=== PATIENT | male | born 1965 | race Caucasian/White ===

== ENCOUNTER 2017-04-15 01:52 | Emergency (ER) | payer OTHER ==
[~2017-04-15] VITALS: Ht 188 cm; Wt 91.6 kg
--- OUTSIDE RECORDS SUMMARY | 2017-04-15 01:57 | XMS REPORT ---
Author Author ROSA RYAN Organization [employer] Address Unknown Phone Unavailable Care Team Providers Care Driller Hand Name Role Phone ROSA RYAN CP Unavailable Allergies No Known Allergies Problems No Known Problems Medications No Known Medications Results No Known Results Summary Purpose [employer] Submission
--- OUTSIDE RECORDS SUMMARY | 2017-04-15 01:57 | XMS REPORT | Continuity of Care Document ---
Author Author [facility] Organization [facility] Address Unknown Phone Unavailable Allergies Active Description Code Type Severity Reaction Onset Reported/Identified Relationship to Patient Clinical Status Yes No Known Drug Allergies [id number] Drug Allergy Unknown N/ A 12/26/2014 Medications Problems Date Dx Coded Attending Type Code Diagnosis Diagnosed By 12/26/2014 ERIN PONCE, LAMBERT Carey Ot 535.00 12/26/2014 ERIN PONCE, LAMBERT Carey Ot 560.9 12/26/2014 LAMBERT KHAN MD Ot V15.82 Procedures Results Encounters ACCT No. Visit Date/Time Discharge Status Pt. Type Provider Facility Loc./Unit Complaint [id number] 12/26/2014 05:31:00 2014 20:15:00 DIS Inpatient LAMBERT KHAN MD [facility] SURGICAL
--- OUTSIDE RECORDS SUMMARY | 2017-04-15 01:57 | XMS REPORT ---
Author Author ROSA RYAN [facility] [employer] Address Unknown Phone Unavailable Care Team Providers Care Inspector Health Care Facilities Name Role Phone ROSA RYAN CP Unavailable Allergies, Adverse Reactions, Alerts Substance Reaction Event Type N.K.D.A. Info Not Available Non Drug Allergy Problems Problem Type Condition Code Onset Dates Condition Status Assessment Meniere disease H81.09 Active Assessment Bronchitis J40 Active Medications Medication Code System Code Instructions Start Date End Date Status Dosage Meclizine HCl [facility] [address]-31 25 MG Orally 4 times a day May 08, 2015 1 Keflex [facility] [address]-25 500 MG Orally 4 times a day May 08, 2015 May 15, 2015 1 capsule Meclizine HCl [facility] [address]-04 25 MG Orally 4 times a day May 08, 2015 1 tablet as needed Procedures Procedure Coding System Code Date Office Visit, New Pt., Level 3 CPT-4 14929 May 08, 2015 MEASURE BLOOD OXYGEN LEVEL CPT-4 83126 May 08, 2015 Vital Signs Date/Time: May 08, 2015 Temperature 98.5 F Weight 200 lbs Height 71 in Oximetry 96 % Blood Pressure Diastolic 70 mmHg Blood Pressure Systolic 108 mmHg Cardiac Monitoring Heart Rate 70 bpm BMI 27.89 Index Results No Known Results Summary Purpose [employer] Submission
[2017-04-15 02:11] LABS: BASOPHILS % (AUTO) 0 % (0-10); EOSINOPHILS # (AUTO) 0.3 10^3/uL (0.0-0.3); EOSINOPHILS % (AUTO) 4 % (0-10); LYMPHOCYTES % (AUTO) 29 % (12-44); MEAN CORPUSCULAR HEMOGLOBIN 31 PG (25-34); MEAN CORPUSCULAR HGB CONC 35 G/DL (32-36); MEAN CORPUSCULAR VOLUME 89 FL (80-99); MEAN PLATELET VOLUME 9.2 FL (7.4-10.4); MONOCYTES # (AUTO) 0.4 X 10^3 (0.0-1.0); MONOCYTES % (AUTO) 6 % (0-12); NEUTROPHILS # (AUTO) 4.3 X 10^3 (1.8-7.8); NEUTROPHILS % (AUTO) 61 % (42-75); PLATELET COUNT 244 10^3/uL (130-400); RED CELL DISTRIBUTION WIDTH 12.8 % (10.0-14.5)
[2017-04-15 02:14] LABS: INR 0.9 (0.8-1.4); PROTHROMBIN TIME PATIENT 12.2 SEC (12.2-14.7)
--- NOTE | 2017-04-15 02:14 | ED Chest Pain ---
General Chief Complaint: Chest Pain Stated Complaint: CP Source: patient, spouse Exam Limitations: no limitations History of Present Illness Time seen by provider: 01:59 Initial Comments Patient presents to ER by private conveyance with chief complaint of for approximately 2 hours now he's been experiencing some intermittent chest pains across both sides of his chest that feel like a butterfly with a hacksaw. He says he feels palpitations as well but no nausea, tingling or pain in his jaw hands or arms. He has had to have several bowel movements every 15 minutes for the past couple hours. He denies shortness of breath or cough. He denies diabetes, hypertension, hypothyroidism, previous coronary artery disease. He says he is a 30 year smoker who quit 2 weeks ago. He denies any recent alcohol use and does not use drugs. He has no family history of early cardiac disease. Prior to coming to the ER the patient states he chewed up at 325 mg tablet of aspirin. Otherwise he does not routinely take any medications. Allergies and Home Medications Allergies Coded Allergies: No Known Drug Allergies (Unverified , 12/26/14) Home Medications No Active Prescriptions or Reported Meds Review of Systems Constitutional: No chills, No diaphoresis EENTM: No Blurred Vision, No Eye Pain Respiratory: Denies Cough, Denies Shortness of Air Cardiovascular: See HPI, Chest Pain, Denies Irregular Heart Rate, Denies Lightheadedness, Palpitations, Denies Syncope Gastrointestinal: Denies Abdominal Pain, Denies Constipated, Denies Diarrhea, Denies Vomiting Genitourinary: Denies Burning, Denies Discharge Musculoskeletal: No back pain, No joint swelling Skin: No pruritus, No rash Psychiatric/Neurological: Denies Anxiety, Denies Depressed, Denies Headache, Denies Numbness, Denies Paresthesia Hematologic/Lymphatic: Denies Blood Clots, Denies Swollen Glands Past Suojbwz-Kburmk-Szomns Hx Patient Social History Alcohol Use: Denies Use Recreational Drug Use: No Smoking Status: Former Smoker Type Used: Cigarettes 2nd Hand Smoke Exposure: Yes Recent Foreign Travel: No Contact w/Someone Who Travel: No Recent Hopitalizations: No Immunizations Up To Date Tetanus Booster (TDap): Unknown Seasonal Allergies Seasonal Allergies: No Surgeries History of Surgeries: No Respiratory History of Respiratory Disorde: No Cardiovascular History of Cardiac Disorders: No Neurological History of Neurological Disord: No Reproductive System Hx Reproductive Disorders: No Genitourinary History of Genitourinary Disor: No Gastrointestinal History of Gastrointestinal Di: Yes (SBO- 12/26/14) Musculoskeletal History of Musculoskeletal Dis: No Endocrine History of Endocrine Disorders: No HEENT History of HEENT Disorders: No Cancer History of Cancer: No Psychosocial History of Psychiatric Problem: Yes Behavioral Health Disorders: Anxiety Integumentary History of Skin or Integumenta: No Blood Transfusions History of Blood Disorders: No Family Medical History Significant Family History: No Pertinent Family Hx Family Medial History: Patient reports no known family medical history. Physical Exam Vital Signs Vital Sign - Last 12Hours 04/15/17 04/15/17 01:52 02:00 Temp 97.7 Pulse 63 Resp 16 B/P (MAP) 116/64 Pulse Ox 98 O2 Delivery Nasal Cannula O2 Flow Rate 2.00 Capillary Refill : Less Than 3 Seconds General Appearance: No Apparent Distress, WD/WN HEENT: PERRL/EOMI, Pharynx Normal Neck: Full Range of Motion, Normal Inspection Respiratory: Chest Non Tender, Lungs Clear, Normal Breath Sounds, No Accessory Muscle Use, No Respiratory Distress Cardiovascular: Regular Rate, Rhythm, No Edema, No Gallop, No JVD, No Murmur, Normal Peripheral Pulses Gastrointestinal: Normal Bowel Sounds, No Organomegaly, Non Tender, Soft Extremity: Normal Capillary Refill, Normal Inspection Neurologic/Psychiatric: Alert, Oriented x3, Normal Mood/Affect Skin: Normal Color, Warm/Dry Progress/Results/Core Measures Results/Orders Lab Results Laboratory Tests Test 04/15/17 01:53 04/15/17 03:30 Range/Units White Blood Count 7.0 4.3-11.0 10^3/uL Red Blood Count 4.70 4.35-5.85 10^6/uL Hemoglobin 14.6 13.3-17.7 G/DL Hematocrit 42 40-54 % Mean Corpuscular Volume 89 80-99 FL Mean Corpuscular Hemoglobin 31 25-34 PG Mean Corpuscular Hemoglobin Concent 35 32-36 G/DL Red Cell Distribution Width 12.8 10.0-14.5 % Platelet Count 244 130-400 10^3/uL Mean Platelet Volume 9.2 7.4-10.4 FL Neutrophils (%) (Auto) 61 42-75 % Lymphocytes (%) (Auto) 29 12-44 % Monocytes (%) (Auto) 6 0-12 % Eosinophils (%) (Auto) 4 0-10 % Basophils (%) (Auto) 0 0-10 % Neutrophils # (Auto) 4.3 1.8-7.8 X 10^3 Lymphocytes # (Auto) 2.0 1.0-4.0 X 10^3 Monocytes # (Auto) 0.4 0.0-1.0 X 10^3 Eosinophils # (Auto) 0.3 0.0-0.3 10^3/uL Basophils # (Auto) 0.0 0.0-0.1 10^3/uL Prothrombin Time 12.2 12.2-14.7 SEC INR Comment 0.9 0.8-1.4 Activated Partial Thromboplast Time 26 24-35 SEC Sodium Level 139 135-145 MMOL/L Potassium Level 3.7 3.6-5.0 MMOL/L Chloride Level 104 98-107 MMOL/L Carbon Dioxide Level 24 21-32 MMOL/L Anion Gap 11 5-14 MMOL/L Blood Urea Nitrogen 11 7-18 MG/DL Creatinine 1.14 0.60-1.30 MG/DL Estimat Glomerular Filtration Rate > 60 BUN/Creatinine Ratio 10 Glucose Level 128 H 70-105 MG/DL Calcium Level 9.1 8.5-10.1 MG/DL Magnesium Level 2.2 1.8-2.4 MG/DL Total Bilirubin 0.4 0.1-1.0 MG/DL Aspartate Amino Transf (AST/SGOT) 21 5-34 U/L Alanine Aminotransferase (ALT/SGPT) 47 0-55 U/L Alkaline Phosphatase 68 40-136 U/L Myoglobin 53.4 10.0-92.0 NG/ML Troponin I < 0.30 < 0.30 <0.30 NG/ML Total Protein 6.8 6.4-8.2 GM/DL Albumin 4.2 3.2-4.5 GM/DL My Orders Orders - ANDRZEJ HERRERA Cbc With Automated Diff (04/15/17 02:04) Magnesium (04/15/17 02:04) Chest 1 View, Ap/Pa Only (04/15/17 02:04) Ekg Tracing (04/15/17 02:04) Cardiac Profile 1 (04/15/17 02:04) Comprehensive Metabolic Panel (04/15/17 02:04) Myoglobin Serum (04/15/17 02:04) Protime With Inr (04/15/17 02:04) Partial Thromboplastin Time (04/15/17 02:04) O2 (04/15/17 02:04) Monitor-Rhythm Ecg Trace Only (04/15/17 02:04) Lipid Panel (04/16/17 06:00) Saline Lock/Iv-Start (04/15/17 02:04) Troponin I (04/15/17 03:53) Vital Signs/I&O Vital Sign - Last 12Hours 04/15/17 04/15/17 04/15/17 01:52 02:00 02:00 Temp 97.7 Pulse 63 Resp 16 B/P (MAP) 116/64 Pulse Ox 98 99 O2 Delivery Nasal Cannula Nasal Cannula Nasal Cannula O2 Flow Rate 2.00 2.00 Progress Note : Time: 03:18 Progress Note ED ACS scores of 12 which is low risk and they recommend two-hour troponin rule out. His second troponin will be just before 4:00. ECG Initial ECG Impression Date: Apr 15, 2017 Initial ECG Impression Time: 01:52 Initial ECG Rate: 63 Initial ECG Rhythm: Normal Sinus Initial ECG Intervals: Normal Initial ECG Impression: Normal Initial ECG Comparisson: No Previous ECG Available Comment No T-wave elevation or depression Diagnostic Imaging Diagonstic Imaging: Xray Plain Films/CT/US/NM/MRI: chest Comments No acute cardiopulmonary process noted. Reviewed: Reviewed by Me Departure Impression Impression: Primary Impression: Chest pain Qualified Codes: R07.9 - Chest pain, unspecified Disposition: 01 HOME, SELF-CARE Condition: Stable Departure-Patient Inst. Decision time for Depature: 04:14 Referrals: NO,LOCAL PHYSICIAN (PCP/Family) Primary Care Physician Patient Instructions: Chest Pain (DC) Add. Discharge Instructions: Tomorrow morning after 8:30 please plan on calling Dr. Parker, cardiology at his office at [phone] to be seen this week. You'll need further workup outpatient to help figure out why you're having these chest pains and if they' re related to your heart. If you have severe chest pain accompanied with nausea vomiting shortness of breath cough you should return to the ER otherwise plan on following up with the software implementation specialist. All discharge instructions reviewed with patient and/or family. Voiced understanding. Scripts No Active Prescriptions or Reported Meds Work/School Note: Work Release Form Date Seen in the Emergency Department: Apr 15, 2017 Return to Work: Apr 15, 2017 Restrictions: No Restrictions Copy Copies To 1: Marzena PARKER MD, TITUS J Apr 15, 2017 02:14
[2017-04-15 02:25] LABS: ALANINE AMINOTRANSFERASE 47 U/L (0-55); ALBUMIN 4.2 GM/DL (3.2-4.5); ANION GAP 11 MMOL/L (5-14); ASPARTATE AMINO TRANSFERASE 21 U/L (5-34); BILIRUBIN,TOTAL 0.4 MG/DL (0.1-1.0); BLOOD UREA NITROGEN 11 MG/DL (7-18); BUN/CREATININE RATIO 10; CALCIUM 9.1 MG/DL (8.5-10.1); CARBON DIOXIDE 24 MMOL/L (21-32); CHLORIDE 104 MMOL/L (98-107); CREATININE SERUM 1.14 MG/DL (0.60-1.30); GFR ESTIMATED > 60; GLUCOSE 128 MG/DL (70-105); MAGNESIUM 2.2 MG/DL (1.8-2.4); POTASSIUM 3.7 MMOL/L (3.6-5.0); SODIUM 139 MMOL/L (135-145); TOTAL PROTEIN 6.8 GM/DL (6.4-8.2)
[2017-04-15 02:32] LABS: MYOGLOBIN SERUM 53.4 NG/ML (10.0-92.0)
[2017-04-15 04:22] VITALS: BP 107/73
--- NOTE | 2017-04-15 06:19 | Diagnostic Imaging Report ---
EXAM: CHEST 1 VIEW, AP/PA ONLY INDICATION: Chest pain. COMPARISON: None. FINDINGS: Normal heart size and pulmonary vascularity. No focal pulmonary opacity, pleural effusion or pneumothorax. No acute osseous findings. Calcified aorta. IMPRESSION: No acute cardiopulmonary findings. Dictated by: Dictated on workstation # [id number]
== END 2017-04-15 04:18 | disposition home or self-care (01) ==
LOC: EDUNIT# 01:52 → ER 01:53
DX: R07.9 Chest pain, unspecified (principal); F41.9 Anxiety disorder, unspecified; Z87.891 Personal history of nicotine dependence
CPT/HCPCS: 36415; 71010; 80053; 83735; 83874; 84484; 85025; 85610; 85730; 93005; 93041

== ENCOUNTER 2017-06-02 08:15 | Outpatient (RCR) | payer OTHER | END 2017-08-31 | disposition home or self-care (01) | LOC: CARD 08:15 | PROVIDERS: ATTEND Internal Medicine Interventional Cardiology | DX: R07.9 Chest pain, unspecified (principal); R42 Dizziness and giddiness; F17.200 Nicotine dependence, unspecified, uncomplicated | CPT/HCPCS: 93225; 93226 ==

== ENCOUNTER → 2017-06-05 | Outpatient (CLI) | payer OTHER ==
[~2017-06-05] VITALS: Ht 188 cm; Wt 89.8 kg
[~2017-06-05] MED LIST: CATHETER FLUSH 10 ML SYR IV PRN
== END ==
LOC: CARD 07:21
PROVIDERS: ATTEND Internal Medicine Interventional Cardiology
DX: R07.9 Chest pain, unspecified (principal); R42 Dizziness and giddiness; F17.200 Nicotine dependence, unspecified, uncomplicated

== ENCOUNTER → 2017-06-09 | Outpatient (CLI) | payer OTHER ==
[~2017-06-09] MED LIST changes: +REGADENOSON 0.4 MG/5 ML SYR (LEXISCAN) IV ONE
[2017-06-09 09:20] VITALS: BP 119/80
--- NOTE | 2017-06-09 21:19 | STRESS TEST ---
DATE OF SERVICE: 06/09/2017 PHARMACOLOGICAL NUCLEAR STRESS TEST REPORT PRIMARY PHYSICIAN: Dr. Jose Gallegos. ATTENDING PHYSICIAN: Dr. Paul Dia. DIAGNOSIS: Chest pain. PROCEDURE DETAILS: The patient was brought to the stress lab after informed consent was taken. All the risks and complications were explained. Lexiscan stress test was performed according to the protocol. A 0.4 mg of Lexiscan was given IV. Low-grade exercise was performed. Baseline EKG showed sinus rhythm at 55 BPM and blood pressure 119/80 mmHg. Maximum heart rate was 100 BPM and blood pressure was 119/80 mmHg. The patient did not have any chest pain, EKG changes or arrhythmias during Lexiscan infusion. A 10.10 mCi of Myoview were given for rest imaging and 28.4 mCi of Myoview were given for stress imaging. TID was 0.96, EF 61%. There is a small-sized severe intensity apical fixed defect. Normal wall motion. SSS 1, SRS 0, SDS 1. IMPRESSION/CONCLUSION: 1. Pharmacological stress test negative for ischemia. 2. There is a small apical fixed defect noted. Clinical correlation is recommended. 3. Normal left ventricular function with no wall motion abnormalities. Job ID: [id number] DocumentID: [id number] Dictated Date: 06/09/2017 15:06:20 Wedger Machine Date: 06/09/2017 19:15:30 Dictated By: JANIS DIA MD
== END ==
LOC: CARD 07:20
PROVIDERS: ATTEND Internal Medicine Interventional Cardiology
DX: R07.9 Chest pain, unspecified (principal); R42 Dizziness and giddiness; F17.210 Nicotine dependence, cigarettes, uncomplicated
CPT/HCPCS: 78452; 93017

== ENCOUNTER → 2017-07-04 | Outpatient (CLI) | payer OTHER | LOC: CARD 08:28 | PROVIDERS: ATTEND Internal Medicine Interventional Cardiology | DX: R07.9 Chest pain, unspecified (principal); R42 Dizziness and giddiness; F17.200 Nicotine dependence, unspecified, uncomplicated | CPT/HCPCS: 93306 ==

== ENCOUNTER 2017-07-09 07:16 | Day surgery (SDC) | payer OTHER ==
[~2017-07-09] VITALS: Ht 188 cm; Wt 89.8 kg
[2017-07-09] VITALS (9 sets, daily range): BP systolic 100–152; BP diastolic 68–96
--- OUTSIDE RECORDS SUMMARY | 2017-07-09 07:21 | XMS REPORT | Continuity of Care Document ---
Author Author [facility] Organization [facility] Address Unknown Phone Unavailable Allergies Active Description Code Type Severity Reaction Onset Reported/Identified Relationship to Patient Clinical Status Yes No Known Drug Allergies [id number] Drug Allergy Unknown N/A 12/26/2014 Medications There is no data. Problems Date Dx Coded Attending Type Code Diagnosis Diagnosed By 12/26/2014 LAMBERT KHAN MD Ot 535.00 12/26/2014 LAMBERT KHAN MD Ot 560.9 12/26/2014 LAMBERT KHAN MD Ot V15.82 04/15/2017 ANDRZEJ HERRERA MD Ot F41.9 ANXIETY DISORDER, UNSPECIFIED 04/15/2017 ANDRZEJ HERRERA MD Ot R07.9 CHEST PAIN, UNSPECIFIED 04/15/2017 ANDRZEJ HERRERA MD Ot Z87.891 PERSONAL HISTORY OF NICOTINE DEPENDENCE 05/26/2017 RICHARD HAMEED MD Ot F41.9 ANXIETY DISORDER, UNSPECIFIED 05/26/2017 RICHARD HAMEED MD Ot R07.2 PRECORDIAL PAIN 05/26/2017 RICHARD HAMEED MD Ot R07.89 OTHER CHEST PAIN 05/26/2017 RICHARD HAMEED MD Ot R10.31 RIGHT LOWER QUADRANT PAIN 05/26/2017 RICHARD HAMEED MD Ot R55 SYNCOPE AND COLLAPSE 05/26/2017 RICHARD HAMEED MD Ot R68.83 CHILLS (WITHOUT FEVER) 05/26/2017 RICHARD HAMEED MD, Ot Z77.22 CNTCT W AND EXPSR TO ENVIRON TOBACCO SMO 05/26/2017 RICHARD HAMEED MD, Ot Z80.1 FAMILY HISTORY OF MALIG NEOPLASM OF TRAC 05/26/2017 RICHARD HAMEED MD Ot Z87.19 PERSONAL HISTORY OF OTHER DISEASES OF TH 05/26/2017 RICHARD HAMEED MD Erwin Ot Z90.89 ACQUIRED ABSENCE OF OTHER ORGANS 06/03/2017 IFEOMA PONCE, Marzena WAN Ot F17.200 NICOTINE DEPENDENCE, UNSPECIFIED, UNCOMP 06/03/2017 IFEOMA PONCE, Marzena WAN Ot R07.9 CHEST PAIN, UNSPECIFIED 06/03/2017 IFEOMA PONCE, Marzena WAN Ot R42 DIZZINESS AND GIDDINESS 06/06/2017 IFEOMA PONCE, Marzena WAN Ot F17.200 NICOTINE DEPENDENCE, UNSPECIFIED, UNCOMP 06/06/2017 IFEOMA PONCE, Marzena WAN Ot R07.9 CHEST PAIN, UNSPECIFIED 06/06/2017 Marzena DIA MD, Ot R42 DIZZINESS AND GIDDINESS 06/10/2017 IFEOMA PONCE, Marzena WAN Ot F17.210 NICOTINE DEPENDENCE, CIGARETTES, UNCOMPL 06/10/2017 Marzena DIA MD, Ot R07.9 CHEST PAIN, UNSPECIFIED 06/10/2017 Marzena DIA MD, Ot R42 DIZZINESS AND GIDDINESS Procedures There is no data. Results Test Result Range Complete blood count (CBC) with automated white blood cell (WBC) differential - 04/15/17 01:53 Blood leukocytes automated count (number/volume) 7.0 10*3/uL 4.3-11.0 Blood erythrocytes automated count (number/volume) 4.70 10*6/uL 4.35-5.85 Venous blood hemoglobin measurement (mass/volume) 14.6 g/dL 13.3-17.7 Blood hematocrit (volume fraction) 42 % 40-54 Automated erythrocyte mean corpuscular volume 89 [foz_us] 80-99 Automated erythrocyte mean corpuscular hemoglobin (mass per erythrocyte) 31 pg 25-34 Automated erythrocyte mean corpuscular hemoglobin concentration measurement ( mass/volume) 35 g/dL 32-36 Automated erythrocyte distribution width ratio 12.8 % 10.0-14.5 Automated blood platelet count (count/volume) 244 10*3/uL 130-400 Automated blood platelet mean volume measurement 9.2 [foz_us] 7.4-10.4 Automated blood neutrophils/100 leukocytes 61 % 42-75 Automated blood lymphocytes/100 leukocytes 29 % 12-44 Blood monocytes/100 leukocytes 6 % 0-12 Automated blood eosinophils/100 leukocytes 4 % 0-10 Automated blood basophils/100 leukocytes 0 % 0-10 Blood neutrophils automated count (number/volume) 4.3 10*3 1.8-7.8 Blood lymphocytes automated count (number/volume) 2.0 10*3 1.0-4.0 Blood monocytes automated count (number/volume) 0.4 10*3 0.0-1.0 Automated eosinophil count 0.3 10*3/uL 0.0-0.3 Automated blood basophil count (count/volume) 0.0 10*3/uL 0.0-0.1 PT panel in platelet poor plasma by coagulation assay - 04/15/17 01:53 Prothrombin time (PT) in platelet poor plasma by coagulation assay 12.2 s 12.2-14.7 INR in platelet poor plasma or blood by coagulation assay 0.9 0.8-1.4 Activated partial thromboplastin time (aPTT) in platelet poor plasma bycoagulation assay - 04/15/17 01:53 Activated partial thromboplastin time (aPTT) in platelet poor plasma bycoagulation assay 26 s 24-35 Comprehensive metabolic panel - 04/15/17 01:53 Serum or plasma sodium measurement (moles/volume) 139 mmol/L 135-145 Serum or plasma potassium measurement (moles/volume) 3.7 mmol/L 3.6-5.0 Serum or plasma chloride measurement (moles/volume) 104 mmol/L 98-107 Carbon dioxide 24 mmol/L 21-32 Serum or plasma anion gap determination (moles/volume) 11 mmol/L 5-14 Serum or plasma urea nitrogen measurement (mass/volume) 11 mg/dL 7-18 Serum or plasma creatinine measurement (mass/volume) 1.14 mg/dL 0.60-1.30 Serum or plasma urea nitrogen/creatinine mass ratio 10 NRG Serum or plasma creatinine measurement with calculation of estimated glomerular filtration rate > NRG Serum or plasma glucose measurement (mass/volume) 128 mg/dL 70-105 Serum or plasma calcium measurement (mass/volume) 9.1 mg/dL 8.5-10.1 Serum or plasma total bilirubin measurement (mass/volume) 0.4 mg/dL 0.1-1.0 Serum or plasma alkaline phosphatase measurement (enzymatic activity/volume) 68 U/L 40-136 Serum or plasma aspartate aminotransferase measurement (enzymatic activity/ volume) 21 U/L 5-34 Serum or plasma alanine aminotransferase measurement (enzymatic activity/volume ) 47 U/L 0-55 Serum or plasma protein measurement (mass/volume) 6.8 g/dL 6.4-8.2 Serum or plasma albumin measurement (mass/volume) 4.2 g/dL 3.2-4.5 Magnesium - 04/15/17 01:53 Magnesium 2.2 mg/dL 1.8-2.4 Serum or plasma troponin i.cardiac measurement (mass/volume) - 04/15/17 01:53 Serum or plasma troponin i.cardiac measurement (mass/volume) < ng/ mL <0.30 Myoglobin, serum - 04/15/17 01:53 Myoglobin, serum 53.4 ng/mL 10.0-92.0 Serum or plasma troponin i.cardiac measurement (mass/volume) - 04/15/17 03:30 Serum or plasma troponin i.cardiac measurement (mass/volume) < ng/ mL <0.30 Complete blood count (CBC) with automated white blood cell (WBC) differential - 05/26/17 08:40 Blood leukocytes automated count (number/volume) 6.8 10*3/uL 4.3-11.0 Blood erythrocytes automated count (number/volume) 4.62 10*6/uL 4.35-5.85 Venous blood hemoglobin measurement (mass/volume) 14.3 g/dL 13.3-17.7 Blood hematocrit (volume fraction) 41 % 40-54 Automated erythrocyte mean corpuscular volume 89 [foz_us] 80-99 Automated erythrocyte mean corpuscular hemoglobin (mass per erythrocyte) 31 pg 25-34 Automated erythrocyte mean corpuscular hemoglobin concentration measurement ( mass/volume) 35 g/dL 32-36 Automated erythrocyte distribution width ratio 13.1 % 10.0-14.5 Automated blood platelet count (count/volume) 289 10*3/uL 130-400 Automated blood platelet mean volume measurement 9.0 [foz_us] 7.4-10.4 Automated blood neutrophils/100 leukocytes 49 % 42-75 Automated blood lymphocytes/100 leukocytes 38 % 12-44 Blood monocytes/100 leukocytes 10 % 0-12 Automated blood eosinophils/100 leukocytes 2 % 0-10 Automated blood basophils/100 leukocytes 0 % 0-10 Blood neutrophils automated count (number/volume) 3.3 10*3 1.8-7.8 Blood lymphocytes automated count (number/volume) 2.6 10*3 1.0-4.0 Blood monocytes automated count (number/volume) 0.7 10*3 0.0-1.0 Automated eosinophil count 0.2 10*3/uL 0.0-0.3 Automated blood basophil count (count/volume) 0.0 10*3/uL 0.0-0.1 PT panel in platelet poor plasma by coagulation assay - 05/26/17 08:40 Prothrombin time (PT) in platelet poor plasma by coagulation assay 13.7 s 12.2-14.7 INR in platelet poor plasma or blood by coagulation assay 1.0 0.8-1.4 Activated partial thromboplastin time (aPTT) in platelet poor plasma bycoagulation assay - 05/26/17 08:40 Activated partial thromboplastin time (aPTT) in platelet poor plasma bycoagulation assay 26 s 24-35 Comprehensive metabolic panel - 05/26/17 08:40 Serum or plasma sodium measurement (moles/volume) 141 mmol/L 135-145 Serum or plasma potassium measurement (moles/volume) 3.8 mmol/L 3.6-5.0 Serum or plasma chloride measurement (moles/volume) 107 mmol/L 98-107 Carbon dioxide 23 mmol/L 21-32 Serum or plasma anion gap determination (moles/volume) 11 mmol/L 5-14 Serum or plasma urea nitrogen measurement (mass/volume) 13 mg/dL 7-18 Serum or plasma creatinine measurement (mass/volume) 0.86 mg/dL 0.60-1.30 Serum or plasma urea nitrogen/creatinine mass ratio 15 NRG Serum or plasma creatinine measurement with calculation of estimated glomerular filtration rate > NRG Serum or plasma glucose measurement (mass/volume) 85 mg/dL 70-105 Serum or plasma calcium measurement (mass/volume) 9.5 mg/dL 8.5-10.1 Serum or plasma total bilirubin measurement (mass/volume) 0.6 mg/dL 0.1-1.0 Serum or plasma alkaline phosphatase measurement (enzymatic activity/volume) 61 U/L 40-136 Serum or plasma aspartate aminotransferase measurement (enzymatic activity/ volume) 14 U/L 5-34 Serum or plasma alanine aminotransferase measurement (enzymatic activity/volume ) 13 U/L 0-55 Serum or plasma protein measurement (mass/volume) 6.9 g/dL 6.4-8.2 Serum or plasma albumin measurement (mass/volume) 4.4 g/dL 3.2-4.5 Magnesium - 05/26/17 08:40 Magnesium 2.3 mg/dL 1.8-2.4 Serum or plasma troponin i.cardiac measurement (mass/volume) - 05/26/17 08:40 Serum or plasma troponin i.cardiac measurement (mass/volume) < ng/ mL <0.30 Myoglobin, serum - 05/26/17 08:40 Myoglobin, serum 36.2 ng/mL 10.0-92.0 Serum or plasma thyrotropin measurement by detection limit <=0.05 miu/l (units/ volume) - 05/26/17 08:40 Serum or plasma thyrotropin measurement by detection limit <=0.05 miu/l (units/ volume) 1.61 u[iU]/mL 0.35-4.94 Complete urinalysis with reflex to culture - 05/26/17 08:55 Urine color determination YELLOW NRG Urine clarity determination CLEAR NRG Urine pH measurement by test strip 6 5-9 Specific gravity of urine by test strip 1.020 1.016- 1.022 Urine protein assay by test strip, semi-quantitative NEGATIVE NEGATIVE Urine glucose detection by automated test strip NEGATIVE NEGATIVE Erythrocytes detection in urine sediment by light microscopy 1+ NEGATIVE Urine ketones detection by automated test strip NEGATIVE NEGATIVE Urine nitrite detection by test strip NEGATIVE NEGATIVE Urine total bilirubin detection by test strip NEGATIVE NEGATIVE Urine urobilinogen measurement by automated test strip (mass/volume) 1 mg/dL NORMAL Urine leukocyte esterase detection by dipstick NEGATIVE NEGATIVE Automated urine sediment erythrocyte count by microscopy (number/high power field) NONE NRG Automated urine sediment leukocyte count by microscopy (number/high power field ) NONE NRG Bacteria detection in urine sediment by light microscopy NEGATIVE NRG Squamous epithelial cells detection in urine sediment by light microscopy RARE NRG Crystals detection in urine sediment by light microscopy NONE NRG Casts detection in urine sediment by light microscopy NONE NRG Mucus detection in urine sediment by light microscopy NEGATIVE NRG Complete urinalysis with reflex to culture NO NRG Influenza virus A and B antigen detection - 05/26/17 09:00 FLU RESULT NEGATIVE FOR INFLUENZA A AND B ANTIGENS BY IA NRG Encounters ACCT No. Visit Date/Time Discharge Status Pt. Type Provider Facility Loc./Unit Complaint [id number] 07/04/2017 08:28:00 07/04/2017 23:59:59 CLS Outpatient Marzena DIA MD [facility] CARD CHEST PAIN [id number] 06/09/2017 07:20:00 06/09/2017 23:59:59 CLS Outpatient Marzena DIA MD [facility] CARD CHEST PAIN [id number] 06/05/2017 07:21:00 06/05/2017 23:59:59 CLS Outpatient Marzena DIA MD [facility] CARD CHEST PAIN [id number] 06/02/2017 08:15:00 06/02/2017 23:59:59 CLS Outpatient Marzena DIA MD [facility] CARD CHEST PAIN [id number] 05/26/2017 07:38:00 05/26/2017 10:25:00 DIS Emergency RICHARD HAMEED MD [facility] ER BLOOD FLOW PROBLEMS, COLD ALL OVER [id number] 04/15/2017 01:53:00 04/15/2017 04:18:00 DIS Emergency ANDRZEJ HERRERA MD [facility] ER CP [id number] 12/26/2014 05:31:00 12/26/2014 20:15:00 DIS Inpatient ERIN PONCE, LAMBERT S [facility] SURGICAL [id number] 07/09/2017 07:16:00 ACT Outpatient Marzena DIA MD [facility] CATH CHEST PAIN
[2017-07-09] MEDS ORDERED: HEParin (CATH LAB) 2,000 ML IV ONE (07:29)
[2017-07-09] MEDS ORDERED: LIDOCAINE 1% INJ 50 ML (XYLOCAINE) VIAL ONE (07:29)
[2017-07-09] MEDS ORDERED: NS IV 1000 ML 1,000 ML IV SCH ×2 (07:30→11:01)
[2017-07-09 07:51] LABS: MEAN PLATELET VOLUME 8.5 FL (7.4-10.4); RED BLOOD COUNT 4.43 10^6/uL (4.35-5.85); WHITE BLOOD COUNT 5.4 10^3/uL (4.3-11.0)
[2017-07-09 08:01] LABS: PROTHROMBIN TIME PATIENT 12.8 SEC (12.2-14.7)
[2017-07-09 08:12] LABS: ALANINE AMINOTRANSFERASE 16 U/L (0-55); ALBUMIN 4.2 GM/DL (3.2-4.5); ANION GAP 9 MMOL/L (5-14); ASPARTATE AMINO TRANSFERASE 13 U/L (5-34); BILIRUBIN,TOTAL 0.7 MG/DL (0.1-1.0); BLOOD UREA NITROGEN 12 MG/DL (7-18); BUN/CREATININE RATIO 13; CALCIUM 9.1 MG/DL (8.5-10.1); CARBON DIOXIDE 24 MMOL/L (21-32); CHLORIDE 109 MMOL/L (98-107); CREATININE SERUM 0.91 MG/DL (0.60-1.30); GFR ESTIMATED > 60; GLUCOSE 100 MG/DL (70-105); POTASSIUM 4.1 MMOL/L (3.6-5.0); SODIUM 142 MMOL/L (135-145); TOTAL PROTEIN 6.9 GM/DL (6.4-8.2)
[2017-07-09] MEDS ORDERED: VERAPAMIL 5 MG/2 ML (CALAN) VIAL IV ONE (10:00)
[2017-07-09] MEDS ORDERED: fentaNYL INJECTION 100 MCG/2 ML AMP ONE (10:00)
[2017-07-09] MEDS ORDERED: HEParin 1000 UNIT/ML (10ML VIAL) FOR BOLUS ONE (10:00)
[2017-07-09] MEDS ORDERED: NITROGLYCERIN DRIP 25 MG/D5W 250 ML IV ONE (10:00)
[2017-07-09] MEDS ORDERED: MIDAZOLAM 5 MG/5 ML (VERSED) VIAL ONE (10:00)
[2017-07-09] MEDS ORDERED: MIDAZOLAM 2 MG/2 ML (VERSED) VIAL ONE (10:43)
--- NOTE | 2017-07-09 11:00 | Cardiac Procedure Note-CS/ASA ---
Pre-Procedure Note Pre-Op Procedure Note H&P Reviewed The H&P was reviewed, patient examined and no changes noted. Date H&P Reviewed: Jul 09, 2017 Time H&P Reviewed: 09:30 Conscious Sedation Pre-Proced Time Reviewed: 09:30 ASA Class: 3 Airway Mallampati Classification: ([place] appropriate class) I. II. III, IV Lungs Heart ASA score ASA 1: a normal healthy patient ASA 2: a patient with a mild systemic disease (mid diabetes, controlled hypertension, obesity ASA 3: a patient with a severe systemic disease that limits activity (angina , COPD, prior Myocardial infarction) ASA 4: a patient with an incapacitating disease that is a constant threat to life (CHF, renal failure) ASA 5: a moribund patient not expected to survive 24 hrs. (ruptured aneurysm) ASA 6: a declared brain patient whose organs are being harvested. For emergent operations, add the letter E after the classification Grade 1 Sedation Plan: Analgesia, Amnesia, Plan communicated to team members, Discussed options with patient/fam, Discussed risks with patient/fam Note The patient is an appropriate candidate to undergo the planned procedure, sedation, and anesthesia. The patient immediately re-assessed prior to indication. Marzena DIA MD Jul 09, 2017 11:00 am
--- NOTE | 2017-07-09 11:01 | Cardiology Post Procedure Note ---
Post-Procedure Note Physician (s)/Diesel Power Mechanic (s) Physician Marzena DIA MD Pre-Procedure Diagnosis Pre-Procedure Diagnosis: Recurrent chest pain, abnormal nuclear stress test. Post-Procedure Note Procedure Start Date: Jul 09, 2017 Procedure Start Time: 10:30 Name of Procedure: Coronary angiography, left heart catheterization Findings/Procedure Note patent epicardial coronary arteries however slow flow noted which is likely due to microvascular dysfunction. Normal LV function with LVEDP 11 mmHg. Anesthesia Type: Conscious Sedation Estimated blood loss (mL): 10 Contrast Amount: 55 Post-Procedure Diagnosis Post-operative diagnosis: Patent epicardial coronary arteries with mild slow flow noted which is likely due to microvascular dysfunction secondary to smoking. Marzena DIA MD Jul 09, 2017 11:01 am
--- NOTE | 2017-07-09 11:03 | Discharge Inst-Post CATH ---
Discharge Inst-CATH Post Cardiac Cath D/C Inst Follow Up/Plan Dr. Parker in one month. CARDIAC CATH DISCHARGE INSTRUCTIONS *Hold Metformin for 48 hours post heart cath. ACTIVITY * Go Home directly and rest. * Limit activity of the leg (or wrist if it was used) for 7 days including aerobics, swimming, jogging, bicycling, etc. * Restrict stair-climbing for 7 days if possible, if not, climb up with your non -cath leg, then bring together on the same step. * Avoid lifting, pushing, pulling or excessive movement of the affected extremity for 7 days. * Customary sexual activity may be resumed after 2 days-use caution not to use a position that strains or causes pain to the affected extremity. * No driving for 24 hours. * NO SMOKING. * Avoid straining for bowel movements for 7 days. * Gentle walking on level ground is allowed. * Returning to work will depend on the type of procedure and the results. Your doctor will discuss this with you. CALL YOUR DOCTOR FOR ANY OF THE FOLLOWING: *If bleeding from the puncture site occurs- Apply gentle pressure to site with clean cloth and call your doctor or EMS. * If a knot or lump forms under the skin, increases in size, or causes pain. * If bruising appears to be worsening or moving further down your leg instead of disappearing. * Temperature above 101 F. CARE OF YOUR GROIN INCISION; * Bruising or purple discoloration of the skin near the puncture site is common. * You may shower only, no bathtub bathing for 5 days. Be careful to avoid slipping as your leg may feel stiff. * If a closure device was used on your femoral artery, please see the attached guide regarding care of the device and your leg. * REMOVE the dressing from your groin the next day after your procedure in the shower. CARE OF YOUR WRIST INCISION; * Bruising or purple discoloration of the skin near the puncture site is common. * You may shower. * DO NOT submerge wrist. * Remove dressing in 24 hours. Marzena PARKER MD Jul 09, 2017 11:03 am
[2017-07-09] MEDS ORDERED: PATIENT MAY USE OWN MEDS, ALL PO SCH (11:15)
--- NOTE | 2017-07-09 20:49 | CARDIAC CATHETERIZATION ---
DATE OF SERVICE: 07/09/2017 LEFT HEART CATHETERIZATION AND CORONARY ANGIOGRAPHY INDICATION: Recurrent chest pain episodes, active smoking, abnormal nuclear stress test. PREOPERATIVE DIAGNOSES: 1. Recurrent chest pain episodes. 2. Active smoking. 3. Abnormal nuclear stress test. POSTOPERATIVE DIAGNOSES: Normal epicardial coronary arteries with mild slow flow noted which suggest microvascular dysfunction secondary to active smoking. HISTORY: The patient is a 51-year-old gentleman with chronic history of smoking. He has been smoking one pack a day for the last 30 years. He presented with prolonged episode of chest pain with radiation to the left shoulder. Nuclear stress test was performed, which showed fixed apical defect. However, due to recurrent chest pain episodes and risk factors, coronary angiography was recommended. PROCEDURES PERFORMED: 1. Coronary angiography. 2. Left heart catheterization. COMPLICATIONS: None. SPECIMEN: None. ESTIMATED BLOOD LOSS: 10 mL. ANESTHESIA: Conscious sedation. ANTICOAGULATION: IV heparin. CONTRAST DOSE: 50 mL of Omnipaque. FLUOROSCOPY TIME: 2.5 minutes. FLUOROSCOPY DOSE: 195 milligrays. PROCEDURE DETAILS: The patient was brought to the tailings dam laborer after informed consent was taken. All the risks and complication were explained in detail. He was draped and prepped in the usual sterile fashion. Access was gained in the right radial artery with a 6-[place] sheath. Coronary angiography and left heart catheterization was performed with a Daniel catheter. FINDINGS: 1. Left main: Patent. 2. LAD: Patent. 3. Left circumflex artery: Patent. 4. RCA: Patent; however, mild slow flow was noted. 5. Left heart catheterization, aortic pressure 89/49 mmHg. LV pressure 82/-1 mmHg. LVEDP 11 mmHg. No gradient across the aortic valve. Normal LV function with no wall motion abnormalities. CONCLUSION: 1. Patent epicardial coronary vessels with mild slow flow noted which is likely secondary to microvascular dysfunction which could be secondary to active smoking. 2. Smoking cessation is strongly recommended. Job ID: [id number] DocumentID: [id number] Dictated Date: 07/09/2017 11:09:57 Surg Tech Date: 07/09/2017 14:39:57 Dictated By: JANIS DIA MD
== END 2017-07-09 14:15 | disposition home or self-care (01) ==
LOC: CATH 07:16 → SURG 11:29 → CATH 14:15
PROVIDERS: ATTEND Internal Medicine Interventional Cardiology
DX: R07.9 Chest pain, unspecified (principal); R94.39 Abnormal result of other cardiovascular function study; R42 Dizziness and giddiness; Z87.891 Personal history of nicotine dependence; I65.23 Occlusion and stenosis of bilateral carotid arteries
CPT/HCPCS: 36415; 80053; 85027; 85610; 85730; 87081; 93458

== ENCOUNTER 2023-05-09 06:36 | Emergency (ER) | payer SELFPAY ==
[~2023-05-09] VITALS: Ht 185.5 cm; Wt 108.0 kg
[2023-05-09] MEDS ORDERED: FAMOTIDINE 20 MG TABLET PO STA (07:00)
[2023-05-09] MEDS ORDERED: ANTACID SUSPENSION 30 ML UDC PO ONE (07:00)
[2023-05-09] MEDS ORDERED: LIDOCAINE 2% VISCOUS 15 ML UDC PO ONE (07:00)
--- NOTE | 2023-05-09 07:05 | ED GI ---
General Chief Complaint: Abdominal/GI Problems Stated Complaint: ABD PAIN Nursing Triage Note: PT AMB TO RM 6 W C/O MID ABD PAIN X1 HR SX HE WOKE UP. PT REPORTS NAUSEA AND FEELING LIKE HE NEEDS TO PRODUCE A BM BUT CAN'T. PAIN HAS GOTTEN BETTER SX GETTING UP AND MOVING AROUND. Source of Information: Patient Exam Limitations: No Limitations History of Present Illness Date Seen by Provider: May 09, 2023 Time Seen by Provider: 06:39 Initial Comments 57-year-old male with PMH of arthritis coming in due to epigastric burning discomfort. It started about an hour ago when he woke up and he was laying flat. Upon standing up and walking around, the pain got better. Was a little bit nauseous, no vomiting. Did not have a bowel movement yet this morning, had a normal one yesterday. He is passing flatus. Is not really having any pain at this time. Denies any cardiac history, does not smoke, does not have high blood pressure, high cholesterol, no lower extremity swelling or pain, no recent surgery, and no prior history of DVT or PE. He says he had cabbage for dinner last night, and he associated symptoms related to that when he typically eats it. He says the only reason he presented to the ER was to make sure he did not have appendicitis Allergies and Home Medications Allergies Coded Allergies: No Known Drug Allergies (Unverified , 12/26/14) Patient Home Medication List Home Medication List Reviewed: Yes Review of Systems Review of Systems Constitutional: No fever EENTM: No Symptoms Reported Respiratory: No Symptoms Reported Cardiovascular: No Symptoms Reported Gastrointestinal: See HPI Genitourinary: No Symptoms Reported Musculoskeletal: no symptoms reported Skin: no symptoms reported Psychiatric/Neurological: No Symptoms Reported Endocrine: No Symptoms Reported Hematologic/Lymphatic: No Symptoms Reported Past [id number]-Emjgmd-Gltlmt Hx Patient Social History Tobacco Use?: No Use of E-Cig and/or Vaping dev: No Substance use?: No Alcohol Use?: No Immunizations Up To Date Tetanus Booster (TDap): Unknown Seasonal Allergies Seasonal Allergies: No Past Medical History Surgery/Hospitalization HX: osteoarthritis, Davies's esophagitis Surgeries: Yes Tonsillectomy Respiratory: No Cardiac: No Neurological: No Reproductive Disorders: No Genitourinary: No Gastrointestinal: Yes (SBO- 12/26/14) Musculoskeletal: No Endocrine: No HEENT: No Cancer: No Psychosocial: Yes Anxiety Integumentary: No Blood Disorders: No Family Medical History Patient reports no known family medical history. Cancer, Hypertension Physical Exam Vital Signs Vital Signs - First Documented 05/09/23 06:45 Temp 36.9 Pulse 69 Resp 18 B/P (MAP) 104/78 (87) Pulse Ox 96 O2 Delivery Room Air Capillary Refill : Less Than 3 Seconds Height/Weight/BMI Height: 6'2.00" Weight: 198lbs. 0.0oz. [id number]; 31.00 BMI Method:Stated General Appearance: WD/WN, no apparent distress HEENT: PERRL/EOMI, normal ENT inspection, pharynx normal Neck: non-tender, full range of motion, supple, normal inspection Respiratory: chest non-tender, lungs clear, normal breath sounds, no respir atory distress, no accessory muscle use Cardiovascular: regular rate, rhythm, no edema, no murmur Gastrointestinal: normal bowel sounds, non tender, soft; No distended, No guarding, No rebound Extremities: normal range of motion, non-tender, normal inspection, no pedal edema, no calf tenderness, normal capillary refill Back: normal inspection, no CVA tenderness Neurologic/Psychiatric: no motor/sensory deficits, alert, normal mood/affect Skin: normal color, warm/dry Progress/Results/Core Measures Results/Orders My Orders Orders - DARRYN CURIEL MD Lidocaine 2% Viscous 15 Ml (Xylocaine Vi (05/09/23 07:00) Famotidine Tablet (Famotidine Tablet) (05/09/23 07:00) Antacid Suspension (Antacid Suspension (05/09/23 07:00) Medications Given in ED Current Medications Medications Dose Ordered Sig/Elma Route Start Time Stop Time Status Last Admin Dose Admin Al Hydrox/Mg Hydrox/Simethicone 30 ml ONCE ONCE PO 05/09/23 07:00 05/09/23 07:01 DC 05/09/23 07:11 30 ML Lidocaine HCl 15 ml ONCE ONCE PO 05/09/23 07:00 05/09/23 07:01 DC 05/09/23 07:11 15 ML Vital Signs/I&O 05/09/23 06:45 Temp 36.9 Pulse 69 Resp 18 B/P (MAP) 104/78 (87) Pulse Ox 96 O2 Delivery Room Air Blood Pressure Mean: 87 Progress Progress Note : Progress Note 57-year-old male with above history coming in due to transient epigastric burning discomfort when laying flat earlier. ABCs were intact and vitals were stable on presentation. Physical exam reassuring including a soft and nontender abdomen. It certainly sounds like GERD in nature. His only risk factor for ACS would be his age, very unlikely given the story. Additionally, it got better with standing up and walking around which would point against ACS. No tenderness right now, clinically does not sound like he has appendicitis, SBO, pancreatitis, gallbladder disease, or any other significant concerns. He was given a GI cocktail. Departure Impression Primary Impression: Epigastric burning sensation Disposition: HOME, SELF-CARE Condition: Stable Departure-Patient Inst. Decision time for Depature: 07:30 Referrals: NO,LOCAL PHYSICIAN (PCP/Family) Primary Care Physician Patient Instructions: Acid Reflux and GERD in Adults (DC) Add. Discharge Instructions: The symptoms sound related to irritation by the acid in your stomach that can go up and affect your esophagus as well. We recommend controlling this with [id number] Maalox. You can also try [id number] Pepcid daily which helps with acid if this becomes a persistent problem. Please follow-up with your regular doctor if that is not helping and it is persisting beyond that. Fortunately you have no pain where you appendix is located, and this is not appendicitis at this time. If the pain becomes more severe, will not go away, you start vomiting a lot, and are unable to have a bowel movement, then we would want you to be seen again by a doctor. Work/School Note: Work Release Form Date Seen in the Emergency Department: May 09, 2023 Return to Work: May 10, 2023 Restrictions: No Restrictions DARRYN CURIEL MD May 09, 2023 07:05
[2023-05-09 07:32] VITALS: BP 129/87
== END 2023-05-09 07:32 | disposition home or self-care (01) ==
LOC: EDUNIT# 06:36 → ER 06:40
DX: R10.13 Epigastric pain (principal); Z87.19 Personal history of other diseases of the digestive system
CPT/HCPCS: 99283